=== PATIENT | male | born 1930 | race Caucasian/White ===

== ENCOUNTER 2016-10-23 10:37 | Inpatient (IN) ==
[2016-10-23] MEDS ORDERED: Lidocaine -MPF 1% 2 ML VIAL ID ONE (11:04)
[2016-10-23] MEDS ORDERED: CeFAZolin Pre 2,000 MG/100 ML 2,000 MG/100 ML BAG IVPB ONE (11:04)
--- NOTE | 2016-10-23 11:10 | Anesthesia Evaluation PreOp ---
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 Very active, good exercise tolerance.) Pulmonary History: Denies Any Significant HX BENDER HELPER History: Denies Any Significant HX Other Medical History: Diabetes Type II, Other (BPH) Anesthesia History: No Prior Anesthetic Complications, Past Anesthesia (CABG x 3 2006) Alcohol Use: none Drug use: none Medications and Allergies Amlodipine [Norvasc] 5 mg PO DAILY 12/16/14 [History] Aspirin [Adult Low Dose Aspirin EC] 81 mg PO DAILY 12/16/14 [History] Finasteride [Proscar] 5 mg PO DAILY 12/16/14 [History] Metoprolol [Lopressor] 50 mg PO DAILY 12/16/14 [History] Pravastatin Sodium [Pravachol] 80 mg PO DAILY 12/16/14 [History] Allergies No Known Allergies Allergy (Verified 12/16/14 16:27) - Meds/Allergy Pre-op Review Medications Reviewed: Yes Allergies Reviewed: Yes Beta Blockers on Current Med List: No Anesthesia Results - Labs Laboratory Tests 09/29/16 09/29/16 09/29/16 12:07 12:07 12:07 WBC 6.1 Hgb 13.0 Hct 37.3 L Plt Count 175 INR 1.1 Sodium 139 Potassium 5.0 H Chloride 104 Carbon Dioxide 27 BUN 11 Creatinine 0.76 - Imaging EKG: image reviewed (SINUS RHYTHM WITH FIRST DEGREE AV BLOCK) Anesthesia Exam O2 Sat Height 1.52 m Height 1.52 m Weight 71.214 kg Weight 71.214 kg O2 Sat by Pulse Oximetry 99 Vital Signs Temp Pulse Resp BP Pulse Ox 97.3 F L 68 18 151/77 99 10/23/16 10:58 10/23/16 10:58 10/23/16 10:58 10/23/16 10:58 10/23/16 10:58 - HEENT Pupil (Motor): Pupils equal, EOMI Mallampati: II Teeth: Edentulous Oral Opening: Greater than 3 - BENDER HELPER LOC: Oriented BENDER HELPER Motor: Normal RUE, Normal LUE, Normal RLE, Normal LLE, Normal Face BENDER HELPER Sensory: Normal: RUE, LUE, RLE, LLE, Face - Cardiac Rhythm: Regular Murmur: None JVD: No Carotid Bruit: No - Pulmonary Breath Sounds: bilateral Clear Respiratory Effort: Symmetrical Anesthesia Assess/Plan ASA Score: 3 Modified [place] Scale for Level of Consciousness: Cooperative, oriented, and tranquil Anesthetic Plan: General Autologous Blood: Yes Monitoring Plan: Standard Monitors, A-Line Recovery Plan: PACU
[2016-10-23] MEDS ORDERED: Ringers Solution, Lactated 1,000 ML IVC SCH (11:15)
[2016-10-23] MEDS ORDERED: *HR* FentaNYL (PF) 100 MCG/2 ML VIAL ONE (11:20)
[2016-10-23] MEDS ORDERED: *HR* Remifentanil 2 MG VIAL IVP ONE (11:20)
[2016-10-23] MEDS ORDERED: *HR* Propofol 200 MG/20 ML VIAL IVP ONE (11:20)
[2016-10-23] MEDS ORDERED: Lidocaine -MPF 2% 2 ML VIAL ONE ×2 (11:21→17:07)
[2016-10-23] MEDS ORDERED: *HR* Phenylephrine 10 MG/ML VIAL ONE (11:21)
[2016-10-23] MEDS ORDERED: *HR* Succinylcholine 200 MG/10 ML VIAL IVP ONE (11:21)
[2016-10-23] MEDS ORDERED: Heparin 1,000 UNITS/500 mL NS 500 ML ONE (12:50)
[2016-10-23] MEDS ORDERED: Heparin 1,000 UNITS/500 mL NS 1,000 ML ONE (13:28)
[2016-10-23] MEDS ORDERED: Lidocaine 1% 20 ML MDV ONE (13:28)
--- NOTE | 2016-10-23 13:31 | History & Physical Report ---
Date of Encounter: 10/23/16 Time of Encounter: 13:30 24 Hour HP Update - Instructions Instructions: If the History and Physical is less than 30 days old and was completed prior to A.M. admission and or procedure and has NOT been updated on calendar day of procedure please complete this update prior to performing procedure. - Update Patient reports changes in Medical Condition: No Changes in examination, assessment, or condition: No Changes in Medication: No Preop tests/diagnostics Reviewed: Yes Surgery Remains Indicated: Yes Consent for Planned Operative Procedure(s) Verified: Yes - Pre-Operative Checklist Preoperative Checklist Indicated: Yes Prophylactic Antibiotic Ordered: Yes Home Medications Include Beta Stomr: Yes Beta Storm Taken Today (Day of Surgery): Yes Beta Storm Taken Yesterday (Day Prior to Surgery): Yes Is VTE Prophylaxis Indicated?: Yes
[2016-10-23] MEDS ORDERED: *HR* Morphine 2 MG/ML SYRINGE IVP PRN ×3 (14:47→18:04)
[2016-10-23] MEDS ORDERED: Ondansetron 4 MG/2 ML VIAL IVP PRN ×2 (14:47→18:04)
[2016-10-23] MEDS ORDERED: Ondansetron 4 MG/2 ML VIAL ONE (17:07)
[2016-10-23] MEDS ORDERED: Dexamethasone 4 MG/ML VIAL ONE (17:07)
--- NOTE | 2016-10-23 17:08 | Operative Note ---
Date of procedure: 10/23/16 Pre-op diagnosis: left carotid stenosis Post-op diagnosis: same Procedure: left carotid endarterectomy with 8 Fr shunt and patch angioplasty Complications: none Anesthesia: CHIA Surgeon: Pepe Faria Estimated blood loss (cc): 100 Specimen: none Condition: stable Disposition: PACU Procedure in Detail: History Manjinder Arizmendi is an 86-year-old white male who was found to have an abnormal carotid duplex scan. This is shown a significant increase in the degree of stenosis in the left carotid system. He remained neurologically asymptomatic. This then led to an angiogram. The angiogram demonstrated a critical stenosis of 98% of the left internal carotid artery. The patient now comes for surgery for this lesion. Procedure After informed consent was obtained the patient was taken the operating room. General endotracheal anesthesia was established. The left neck was sterilely prepped and draped. A timeout protocol was observed. An oblique incision was then made on the left neck. Dissection was carried down to the carotid sheath. The cranial nerves were identified and preserved. Selective control was then obtained of the carotid vessels. Heparin was given a dose of 5000 units intravenously. After 3 minutes later the vessels were clamped with the internal carotid artery clamped first. Then using an 11 blade knife and Brady scissors an arteriotomy was made. The vessel was opened from the internal carotid artery onto the common carotid artery. An 8 Icelandic shunt was then inserted atraumatically. Patency of the shunt was confirmed by the use of intraoperative Doppler. Evaluation of the plaque revealed a dense relatively heterogeneous plaque. It was indeed a critical stenosis. There was no fresh thrombus identified. There is no dissection identified. The endarterectomy was then begun at the distal aspect of the common carotid artery. This was performed to establish a dissection plane which was then carried proximally and distally. The orifice of the superior thyroid and external carotid arteries were endarterectomized. The endpoint on the internal carotid artery was smooth and no tacking sutures were necessary. Dissection was carried proximally onto the common carotid artery. The plaque appeared to extend more proximal and so therefore the proximal clamp was readjusted and the arteriotomy was extended. This allowed further plaque to be dissected and then removed. The bed of the vessel was inspected for any residual debris. After this was removed it was copiously irrigated with antibiotic-containing solution. A Dacron patch was then sewn into position. 6-0 Prolene suture was used for this. Leaving a small space open on the suture line the shunt was clamped divided and removed. The final few sutures were then placed. After appropriate backbleeding and flushing the artery was opened with the internal carotid artery open last. Excellent Doppler signals and pulsations were identified throughout the carotid system. There was no hemodynamic distress with this maneuver. The wound was then irrigated and hemostasis achieved. A superficial cervical block using half percent Marcaine was performed. The wound was then closed in layers using absorbable suture. No drains were placed. The patient tolerated the procedure well. There were no intraoperative complications. The patient was extubated in the operating room and found to be neurologically intact. He was then transported to the recovery room in stable condition.
--- NOTE | 2016-10-23 17:51 | Anesthesia Evaluation Post Op ---
Date of Encounter: 10/23/16 Time of Encounter: 17:50 - Vital Signs Vital Signs: Last Vital Signs Temp 98.0 F 10/23/16 17:45 Pulse 68 10/23/16 17:45 Resp 12 10/23/16 17:45 BP 101/60 10/23/16 17:45 Pulse Ox 96 10/23/16 17:45 - Lungs Lungs: Clear Ascult./Percussion - Airway Airway: Non-obstructed - Cardiovascular Regular Rate - Mental Status Mental Status: Alert & Oriented, Answers Appropriately - Pain Pain Scale: 2 - Nausea Vomiting Nausea Vomiting: Not Present - Hydration Hydration: NPO, Moser catheter - Discharge PostOp Status: Transfer Patient to floor
[2016-10-23] MEDS ORDERED: Naloxone 0.4 MG/ML INJ IVP PRN (18:04)
[2016-10-23] MEDS ORDERED: Acetaminophen 325 MG TABLET PO PRN (18:04)
[2016-10-23] MEDS ORDERED: *HR* HYDROcodone/Acet 5/325 mg TABLET PO PRN (18:04)
[2016-10-23] MEDS: ceFAZolin 2,000 MG in D5% in Water 100 ML IVPB SCH (21:51)
[2016-10-24] MEDS: ceFAZolin 2,000 MG in D5% in Water 100 ML IVPB SCH ×2 (05:36→13:26)
[2016-10-24 05:58] LABS: Basophils % 0.1 %; Hematocrit 33.5 % (37.5-50.1); Hemoglobin 11.1 g/dL (12.9-16.9); Immature Granulocytes % 0.6 % (0-4); Lymphocytes # 0.7 K/mcL (0.6-4.6); Lymphocytes % 7.4 %; Mean Corpuscular HGB Conc 33.1 g/dL (31.6-35.5); Mean Corpuscular Hemoglobin 28.6 pg (28.0-33.3); Mean Corpuscular Volume 86.3 fL (83.0-100.0); Mean Platelet Volume 10.2 fL (9.4-12.4); Monocytes # 0.5 K/mcL (0.0-1.3); Monocytes % 5.1 %; Neutrophils # 7.8 K/mcL (1.6-8.9); Platelet Count 163 K/mcL (140-400); Red Blood Count 3.88 M/mcL (4.19-5.50); Red Cell Distribution Width 13.2 % (11.5-14.5); Segmented Neutrophils % 86.8 %
[2016-10-24 06:11] LABS: BUN/Creatinine Ratio 20 (6-26); Blood Urea Nitrogen 17 mg/dL (8-26); Calcium 8.5 mg/dL (8.6-10.8); Carbon Dioxide 27 mEq/L (19-29); Chloride 103 mEq/L (98-109); Glucose 214 mg/dL (70-99); Osmolality,Calculated 292 (280-300); Potassium 4.7 mEq/L (3.5-4.5); Sodium 137 mEq/L (136-145); eGFR For African Americans > 60 (> 60); eGFR For Non-African Americans > 60 (> 60)
[2016-10-24] MEDS ORDERED: *HR* Metformin 500 MG TABLET PO SCH (08:00)
[2016-10-24] MEDS ORDERED: amLODIPine 5 MG TABLET PO SCH (09:00)
[2016-10-24] MEDS ORDERED: Aspirin Enteric Coated 81 MG Tablet PO SCH (09:00)
[2016-10-24] MEDS ORDERED: Metoprolol XL (24 HR) Succ 50 MG TAB.ER.24H PO SCH (09:00)
[2016-10-24] MEDS ORDERED: Finasteride 5 MG TABLET PO SCH (09:00)
--- NOTE | 2016-10-24 11:02 | Discharge Summary ---
Date of Encounter: 10/24/16 Time of Encounter: 11:00 - Discharge Diagnosis (1) Carotid stenosis, asymptomatic Priority: Primary Status: Acute Comments: Patient had asymptomatic carotid stenosis. He was being followed with outpatient monitoring. He was found to have an increase in the velocity and a higher degree of stenosis. This then led to an angiogram which confirmed our suspicion of a high-grade stenosis. The angiogram demonstrated a 98-99% stenosis. The patient underwent an uneventful left carotid artery endarterectomy yesterday Qualifiers: Laterality: left Qualified Code(s): I65.22 - Occlusion and stenosis of left carotid artery - Discharge Medications Home Medications: Amlodipine [Norvasc] 5 mg PO DAILY 12/16/14 [History] Aspirin [Adult Low Dose Aspirin EC] 81 mg PO DAILY 12/16/14 [History] Finasteride [Proscar] 5 mg PO DAILY 12/16/14 [History] Pravastatin Sodium [Pravachol] 40 mg PO DAILY 12/16/14 [History] Metoprolol XL (24 HR) Succ [Toprol Xl] 50 mg PO DAILY 10/23/16 [History] metFORMIN [Glucophage] 500 mg PO BIDWM 10/23/16 [History] Allergies/Adverse Reactions: Allergies No Known Allergies Allergy (Verified 10/23/16 12:04) Date of admission: 10/23/16 18:01 Primary care physician: Hola Mireles CNP Consults: None Procedure(s) Performed: Left carotid endarterectomy with patch angioplasty Discharging clinician: Pepe Faria Anticipated date of discharge: 10/24/16 - Patient Status Disposition: Home, Self-Care Condition: Good Functional capacity at discharge: independent ambulation Overall status at discharge: patient is progressing back to baseline - Discharge Instructions Follow Up With: Hola Mireles CNP [Primary Care Provider] - (OFFICE CLOSED AT 1300, PATIENT WILL NEED TO CALL FOR HIS OWN APPOINTMENT) Pepe Faria MD [Partnered Physician] - 11/12/16 8:30 am Additional Instructions: Patient is to keep left neck incision dry for total of 5 days following surgery Patient is not to drive or lift greater than 10 pounds or perform manual labor until follow-up visit Patient is to follow-up with Dr. Faria in 2 weeks Patient is to resume usual home medications Patient is to use an ice pack over the left neck incision for the next 2-3 days at home - Diet and Activity Activity: increase activity as tolerated Diet: advance to your usual diet - Hospital Course Hospital course: Mr. Arizmendi is a 86 year old male With a high-grade stenosis of the left internal carotid artery confirmed on angiogram. The patient underwent a left carotid endarterectomy under general endotracheal anesthesia. The patient tolerated the procedure well. He was neurologically intact postoperatively. He had an uneventful postoperative course. He was felt fit for discharge on postoperative day #1. His diet medications and exercise were reviewed with the patient prior to discharge. - Time Spent with Patient Total time spent providing and/or coordinating discharge services: Exam Vital Signs, Last 4 Hours Temp Pulse Resp BP Pulse Ox 10/24/16 08:14 64 10/24/16 07:57 98.7 F 64 17 99/59 92 General: Present: No Apparent Distress, Well developed, Well nourished HEENT: Present: Atraumatic, Normocephaly, Trachea midline, Pupils equal Neck: Absent: JVD, Midline deformity, Tracheal deviation Cardiac: Present: Reg Rate and Rhythm, Normal S1 and S2, No Murmur Lungs: Present: Normal Breath Sounds Neuro: Present: Alert and responsive, No focal deficits noted, Cranial nerves grossly intact, Motor nerves grossly intact, Sensory nerves grossly intact Abdomen: Present: Soft - VTE Documentation of Mechanical Device: Intermittent pneumatic compression device
[2016-10-24 11:15] VITALS: BP 99/71
== END 2016-10-24 15:03 | disposition home or self-care (01) | DRG 39 ==
LOC: SAMDAY 10:37 → 2NNU 18:01
PROVIDERS: ADMIT Surgery Vascular Surgery; ATTEND Surgery Vascular Surgery